=== PATIENT | female | born 1965 | race Two or more races ===

== ENCOUNTER 2019-05-24 01:20 | Emergency (ER) | payer MEDICAID, OTHER ==
[~2019-05-24] VITALS: Ht 157.5 cm; Wt 77.1 kg
--- NOTE | 2019-05-24 01:42 | NUR ---
BIBFAMILY FROM HOME TO ER BED 9. AAOX4. NO RESP DISTRESS NOTED. AMBULATORY. C/O SORE THROAT WITH DIFFICULTY TO SWALLOW. PER PT REPORT, SHE STARTED TO HAVE NECK PAIN YESTERDAY AND TODAY SHE GOT AWAOKEN UP BECAUSE SHE WAS HAVING SOB THEN THE THROAT PAIN STARTED. AFTER PT COUGH SHE STARTED FEELING BETTER WITH THE BREATING. MD WAS AT BEDSIDE FOR EVAL. ORDER RECEIVED NOTED AND CARRIED OUT. IV LINE OBTAINED ON THE R AC 18G. BLOOD DRAWN AND GIVEN TO SOLAR THERMAL TECHNICIAN AT BEDSIDE
[2019-05-24 02:00] LABS: CALCIUM, SERUM 8.8 mg/dL (8.5-10.1); CREATININE 0.9 mg/dL (0.6-1.3); POTASSIUM 3.8 mmol/L (3.5-5.1)
[2019-05-24] MEDS ORDERED: IOHEXOL-350 100 ML VIAL IV ONE (02:12)
[2019-05-24] MEDS ORDERED: IV NS 0.9% 250 ML IV ONE (02:13)
[2019-05-24] MEDS ORDERED: CT SWABBABLE VALVE TRANS SET 1 EA INFUS.SET MC ONE (02:13)
--- NOTE | 2019-05-24 03:14 | NUR ---
Patient discharged to home in stable condition. Written and verbal after care instructions given. Patient verbalizes understanding of instruction. Pt ambulatory with a steady gait IV removed. Catheter intact and site benign. Pressure and 4x4 applied to site. No bleeding noted.
[2019-05-24 03:18] VITALS: BP 138/85
== END 2019-05-24 03:18 | disposition home or self-care (01) ==
LOC: ER 01:21
DX: R07.0 Pain in throat (principal); M54.2 Cervicalgia
CPT/HCPCS: 36415; 70498; 80048; 99285; J7050; Q9967